=== PATIENT | female | born 1945 | race Caucasian/White ===

== ENCOUNTER 2016-10-11 10:03 | Emergency (ER) | payer MEDICARE ==
[~2016-10-11] VITALS: Ht 175.3 cm; Wt 90.9 kg
[~2016-10-11 10:03] MED LIST: ANTIVERT 25MG25 MG PO; ASPIRIN 81M81 MG/TA2 PO; B2-5050 MG PO; CELEXA 20MG20 MG/TAB PO; GLUCOPHAGE XR500 M1 PO; HCTZ 25MG25 MG PO; HYZAAR; HYZAAR 25 MG-101 TAB PO; LABETALOL100 MG PO; LIPITOR 40MG TA40 MG PO; METFORMIN ER500 MG PO; NORCO PO; NORMODYNE100 MG PO; PRAVACHOL10 MG PO
[2016-10-11 10:05] VITALS: TEMP 97.5
[2016-10-11 10:41] LABS: BASO # 0.1 (0.0-0.2); BASO % 1.9 % (0.0-2.0); EOS # 0.4 (0.0-0.7); GRAN # 3.4 (1.4-6.5); GRAN % 53.7 % (42.2-75.2); HEMATOCRIT 41.3 % (37.0-47.0); HEMOGLOBIN 13.9 g/dl (12.5-16.0); LYMPH # 1.9 (1.2-3.4); LYMPH % 29.4 % (20.0-51.0); MEAN CELL VOLUME 89 fl (80.0-100.0); MEAN CORPUSCULAR HEMOGLOBIN 30 pg (27.0-31.0); MEAN CORPUSCULAR HGB CONC 34 g/dl (33.0-37.0); MEAN PLATELET VOLUME 10.4 fl (7.4-10.4); MONO # 0.5 (0.1-0.6); MONO % 7.8 % (1.7-9.3); PLATELET COUNT 291 K/mm3 (130-400); RED BLOOD COUNT 4.66 M/mm3 (4.10-5.30); REDCELL DISTRIBUTION WIDTH-CV 12.7 % (11.5-14.5); WHITE BLOOD COUNT 6.3 K/mm3 (4.8-10.8)
[2016-10-11 10:59] LABS: ADJUSTED CALCIUM 9.7 mg/dL (8.4-10.2); ALANINE AMINOTRANSFERASE 33 U/L (9-52); ALBUMIN 4.3 gm/dL (3.5-5.0); ALKALINE PHOSPHATASE 78 U/L (50-136); ANION GAP 14 mmol/L (7-16); BILIRUBIN,TOTAL 1.3 mg/dL (0.0-1.0); BLOOD UREA NITROGEN 20 mg/dL (7-17); CALCIUM 9.9 mg/dL (8.4-10.2); CARBON DIOXIDE 22 mmol/L (22-30); CHLORIDE 103 mmol/L (98-107); GLUCOSE 108 mg/dL (74-106); POTASSIUM 3.7 mmol/L (3.4-5.0); SODIUM 139 mmol/L (137-145); TOTAL PROTEIN 8.1 gm/dL (6.4-8.2)
[2016-10-11 11:06] LABS: C-REACTIVE PROTEIN < 0.5 mg/dL (0.0-0.9)
[2016-10-11 11:16] LABS: ARTERIAL BLD GAS O2 SATURATION 98.2 % (92-100); ARTERIAL BLOOD GAS BASE EXCESS 0.1 (-2-2); ARTERIAL BLOOD GAS HCO3 18.4 meq/L (22-26); ARTERIAL BLOOD GAS PO2 108.8 mmHg (80-100); ARTERIAL BLOOD GAS PO2T 108.8 (80-100); OXYHEMOGLOBIN 97.2 %
[2016-10-11 11:17] LABS: ARTERIAL BLOOD GAS PHT 7.63 C (7.35-7.45); ARTERIAL BLOOD GAS pH 7.63 (7.35-7.45); ATS? YES
[2016-10-11 12:30] VITALS: BP 146/74; PULSE 70
== END 2016-10-11 12:34 | disposition home or self-care (01) ==
LOC: COL.ER 10:03
PROVIDERS: Family Medicine
DX: R06.4 Hyperventilation (principal); E11.9 Type 2 diabetes mellitus without complications; I10 Essential (primary) hypertension
CPT/HCPCS: J2270

== ENCOUNTER 2016-11-16 12:46 | Emergency (ER) | payer MEDICARE ==
[~2016-11-16] VITALS: Ht 175.3 cm; Wt 90.9 kg
[2016-11-16 12:48] VITALS: TEMP 97.8
[2016-11-16 14:17] LABS: BASO # 0.1 (0.0-0.2); EOS # 0.3 (0.0-0.7); EOS % 3.7 % (0-4.0); GRAN # 5.8 (1.4-6.5); GRAN % 65.4 % (42.2-75.2); HEMATOCRIT 39.3 % (37.0-47.0); HEMOGLOBIN 13.5 g/dl (12.5-16.0); LYMPH % 22.1 % (20.0-51.0); MEAN CELL VOLUME 88 fl (80.0-100.0); MEAN CORPUSCULAR HEMOGLOBIN 30 pg (27.0-31.0); MEAN CORPUSCULAR HGB CONC 34 g/dl (33.0-37.0); MEAN PLATELET VOLUME 10.3 fl (7.4-10.4); MONO # 0.7 (0.1-0.6); MONO % 7.6 % (1.7-9.3); PLATELET COUNT 270 K/mm3 (130-400); RED BLOOD COUNT 4.47 M/mm3 (4.10-5.30); WHITE BLOOD COUNT 8.9 K/mm3 (4.8-10.8)
[2016-11-16 14:29] LABS: ANION GAP 13 mmol/L (7-16); BLOOD UREA NITROGEN 22 mg/dL (7-17); CALCIUM 9.3 mg/dL (8.4-10.2); CARBON DIOXIDE 25 mmol/L (22-30); CHLORIDE 102 mmol/L (98-107); CREATININE, serum 0.83 mg/dL (0.52-1.25); GLUCOSE 94 mg/dL (74-106); POTASSIUM 3.7 mmol/L (3.4-5.0); SODIUM 140 mmol/L (137-145)
[2016-11-16 14:43] LABS: TROPONIN-I < 0.012 ng/mL (0.000-0.034)
[2016-11-16] MEDS ORDERED: ULTRAM 50MG TAB50 MG PO (15:51)
[2016-11-16] MEDS ORDERED: PERCOCET 325 MG1 TA2 PO (15:51)
[2016-11-16 16:28] VITALS: BP 111/61; PULSE 81
== END 2016-11-16 16:18 | disposition home or self-care, planned readmission (81) ==
LOC: COL.ER 12:46
PROVIDERS: Emergency Medicine
DX: R07.89 Other chest pain (principal); W01.198A Fall on same level from slipping, tripping and stumbling with subsequent striking against other object, initial encounter; Y92.002 Bathroom of unspecified non-institutional (private) residence as the place of occurrence of the external cause; Z91.81 History of falling; R42 Dizziness and giddiness; I10 Essential (primary) hypertension
CPT/HCPCS: J1170; J1885; J2405; J7030

== ENCOUNTER 2016-11-29 10:15 | Outpatient (RCR) | payer MEDICARE ==
[~2016-11-29 10:15] MED LIST changes: +PERCOCET 325 MG1 TA2 PO; +ULTRAM 50MG TAB50 MG PO
== END 2016-12-02 12:55 | disposition home or self-care (01) ==
LOC: WSPT 10:15
DX: G62.89 Other specified polyneuropathies (principal); R26.89 Other abnormalities of gait and mobility
CPT/HCPCS: G8978-GP; G8979-GP; G8980-GP

== ENCOUNTER 2018-08-02 11:15 | Emergency (ER) | payer MEDICARE ==
[~2018-08-02] VITALS: Ht 175.3 cm; Wt 90.9 kg
[2018-08-02 11:16] VITALS: BP 113/58; TEMP 97.9
[2018-08-02] MEDS ORDERED: TYLENOL 500MG500 MG PO (12:38)
[2018-08-02] MEDS ORDERED: PROAIR HFA0.09 MG/AC IH (12:39)
[2018-08-02] MEDS ORDERED: PRILOSEC 20MG20 MG PO (12:41)
[2018-08-02] MEDS ORDERED: CLARITIN 1010 MG/TAB PO (12:42)
[2018-08-02] MEDS ORDERED: VITAMIN B650 MG PO (12:43)
[2018-08-02] MEDS ORDERED: DOXYCYCLINE 10100 MG PO (14:14)
[2018-08-02 14:30] VITALS: PULSE 94
== END 2018-08-02 14:30 | disposition home or self-care (01) ==
LOC: COL.ER 11:15
DX: S40.011A Contusion of right shoulder, initial encounter (principal); S70.01XA Contusion of right hip, initial encounter; E11.621 Type 2 diabetes mellitus with foot ulcer; L97.529 Non-pressure chronic ulcer of other part of left foot with unspecified severity; L97.519 Non-pressure chronic ulcer of other part of right foot with unspecified severity; F41.0 Panic disorder [episodic paroxysmal anxiety]; R06.4 Hyperventilation; I10 Essential (primary) hypertension; J44.9 Chronic obstructive pulmonary disease, unspecified; F41.9 Anxiety disorder, unspecified; M54.9 Dorsalgia, unspecified; G89.29 Other chronic pain; Z79.84 Long term (current) use of oral hypoglycemic drugs; Z79.82 Long term (current) use of aspirin; Z79.891 Long term (current) use of opiate analgesic; Z86.73 Personal history of transient ischemic attack (TIA), and cerebral infarction without residual deficits; W18.30XA Fall on same level, unspecified, initial encounter; Y92.002 Bathroom of unspecified non-institutional (private) residence as the place of occurrence of the external cause
CPT/HCPCS: J1630

== ENCOUNTER 2019-08-09 11:17 | Inpatient (IN) | payer MEDICARE ==
[~2019-08-09] VITALS: Ht 172.7 cm; Wt 95.0 kg
[~2019-08-09 11:17] MED LIST changes: +CLARITIN 1010 MG/TAB PO; +DOXYCYCLINE 10100 MG PO; +PRILOSEC 20MG20 MG PO; +PROAIR HFA0.09 MG/AC IH; +TYLENOL 500MG500 MG PO; +VITAMIN B650 MG PO
[2019-08-09 11:53] LABS: MEAN CELL VOLUME 94 fl (80.0-100.0); MEAN CORPUSCULAR HGB CONC 34 g/dl (33.0-37.0); MEAN PLATELET VOLUME 10.5 fl (7.4-10.4); PLATELET COUNT 266 K/mm3 (130-400); RED BLOOD COUNT 2.81 M/mm3 (4.10-5.30); REDCELL DISTRIBUTION WIDTH-CV 13.4 % (11.5-14.5)
[2019-08-09 11:57] LABS: HEMATOCRIT 26.3 % (37.0-47.0); HEMOGLOBIN 8.8 g/dl (12.5-16.0); MEAN CORPUSCULAR HEMOGLOBIN 31 pg (27.0-31.0)
[2019-08-09 12:03] LABS: PROTHROMBIN TIME 11.5 SECONDS (9.7-12.8)
[2019-08-09 12:11] LABS: ALBUMIN 4.2 gm/dL (3.5-5.0); BILIRUBIN,TOTAL 0.9 mg/dL (0.0-1.0); CALCIUM 9.1 mg/dL (8.4-10.2); CREATININE, serum 2.63 (0.52-1.25); POTASSIUM 4.7 mmol/L (3.4-5.0); TOTAL PROTEIN 7.3 gm/dL (6.4-8.2)
[2019-08-09 12:18] LABS: BAND 5 % (0-10); LYMPHOCYTE 5 % (20.0-51.0); NEUTROPHILS 88 % (42.0-75.2); PLATELET ESTIMATE NORMAL (NORMAL)
[2019-08-09 12:27] LABS: TROPONIN-I 0.093 ng/mL (0.000-0.035)
[2019-08-09 12:52] LABS: COLLECTION METHOD CATHETER
[2019-08-09 13:10] LABS: MUCOUS Present /lpf; PH 5 (5-8); SQUAMOUS EPITHELIAL 0-2 /hpf; URINE APPEARANCE Cloudy; URINE BACTERIA None Seen /hpf; URINE BILIRUBIN Negative (NEGATIVE); URINE BLOOD 3+ (NEGATIVE); URINE COLOR Amber; URINE GLUCOSE Negative (NEGATIVE); URINE KETONE Trace (NEGATIVE); URINE LEUKOCYTE ESTERASE Negative (NEGATIVE); URINE NITRATE Negative (NEGATIVE); URINE PROTEIN(semi-quant) 1+ (NEGATIVE); URINE RBC 0-2 /hpf; URINE UROBILINOGEN Negative (NEGATIVE)
[2019-08-09] MEDS ORDERED: BUSPAR5 MG PO (13:11)
[2019-08-09 14:20] VITALS: BP 115/56; PULSE 104; TEMP 98.2
[2019-08-09 16:00] VITALS: BP 132/50; PULSE 105; TEMP 98.4
[2019-08-09] MEDS ORDERED: XANAX 0.5MG0.5 MG PO (16:34)
[2019-08-09] MEDS ORDERED: ATIVAN 1MG T1 MG/TAB PO (16:35)
[2019-08-09] MEDS ORDERED: ULTRAM 50MG TAB50 MG PO (16:36)
--- NOTE | 2019-08-09 19:31 | NUR ---
Patient resting in bed. Daughter was at bedside earlier today. Inital, med rec & 5 page completed. Spoke to Dr. Bautista office for up to date files. Patient has spent most of the day sleeping. Milner to DD with minimal urine output. Urine sediment present. Npo at this time, difficulty swallowing noted. Scds ble. Ivf per orders.
[2019-08-09 19:46] VITALS: BP 112/91; PULSE 111; TEMP 97.9
[2019-08-10] VITALS (15 sets, daily range): BP systolic 92–132; BP diastolic 44–78; PULSE 88–105; TEMP 97.2–98.7
--- NOTE | 2019-08-10 04:54 | NUR ---
Patient has rested well throughout the night. Noted to start moaning and whimpering in pain about 0200. Patient appears more alert than when this nurse came on shift and PRN Morphine was administered at 0230 and 0430. Patient appears to rest more comfortably after administration, but does continue to moan. Ice to left hip. Dr. Hall was called at beginning of shift for IV pain medications, because this nurse attempted to give patient a sip of water and she ended up coughing with it. Milner catheter continues to be in place and drains clear, yellow urine. Will continue to monitor patient.
[2019-08-10 07:11] LABS: BASO % 0.2 % (0.0-2.0); EOS % 0.3 % (0-4.0); GRAN # 10.7 (1.4-6.5); GRAN % 80.9 % (42.2-75.2); LYMPH # 1.4 (1.2-3.4); LYMPH % 10.3 % (20.0-51.0); MEAN CELL VOLUME 97 fl (80.0-100.0); MEAN CORPUSCULAR HGB CONC 32 g/dl (33.0-37.0); MEAN PLATELET VOLUME 10.3 fl (7.4-10.4); MONO % 7.5 % (1.7-9.3); PLATELET COUNT 210 K/mm3 (130-400); RED BLOOD COUNT 2.17 M/mm3 (4.10-5.30); REDCELL DISTRIBUTION WIDTH-CV 13.8 % (11.5-14.5)
[2019-08-10 07:23] LABS: ALBUMIN 3.1 gm/dL (3.5-5.0); BILIRUBIN,TOTAL 0.6 mg/dL (0.0-1.0); CALCIUM 7.8 mg/dL (8.4-10.2); CREATININE, serum 2.31 (0.52-1.25); MAGNESIUM 1.9 mg/dL (1.6-2.3); PHOSPHOROUS 4.9 mg/dL (2.5-4.5); POTASSIUM 4.5 mmol/L (3.4-5.0); TOTAL PROTEIN 5.9 gm/dL (6.4-8.2)
[2019-08-10 07:28] LABS: HEMATOCRIT 21.1 % (37.0-47.0); HEMOGLOBIN 6.7 g/dl (12.5-16.0); MEAN CORPUSCULAR HEMOGLOBIN 31 pg (27.0-31.0)
--- NOTE | 2019-08-10 07:41 | NUR ---
Critical H&H called to , all labs reviewed. Updated ortho with labs & informed them she is not yet cleared for the Or. Consult to called & he was updated with labs.
--- NOTE | 2019-08-10 12:34 | NUR ---
rounded. Orders obtained. He called & informed him patient is cleared for surgery. called & made aware of plan of care. Patient daughter Erma has been at bedside & aware of plan. First unit of blood started per orders. blood protocol followed & verified with Julita Jacobo. Blood infusing to L.hand 20G IV @ 60ML./hr, primary nurse at bedside. Signs & symtoms of trandfusion reaction reviewed. Vss on 1 L. Patient has been having complaints of pain, she has been loudly maoning & groaning & grimicing. -Doctors aware, concerns for sedation, so pain medication orders the same, they are not willing to increase. Ice pack to hip. Have tried multiple times to reposition. Unable to get patient comfortable.
--- NOTE | 2019-08-10 16:09 | NUR ---
Patient resting in bed. Second tab of roxicodone seems to have relieved pain some. She is not moaning out in pain as frequently. First unit of blood transfused with no signs or symptoms of reaction. Second unit of blood started per protocol. Verfied with Alice Jacobo. This nurse remains at bedside.
--- NOTE | 2019-08-10 18:52 | NUR ---
Second unit of blood has finished. Patient tolerated without signs or symptoms of infusion. Patient continues to moan & groan & constantly ask for water, sips of water provided for comfort. She has had no interest in food. Third tab of roxicodone provided with tylenol-it seems to be working slightly better than the IV morphine. She has rested at times. Urine output adequate. Ivf per orders. Felipa to Rle, Scds ble. Edema reamins to LLe. She has refused repositioning today.
[2019-08-11] VITALS (14 sets, daily range): BP systolic 108–154; BP diastolic 55–85; PULSE 82–100; TEMP 97.6–98.9
--- NOTE | 2019-08-11 01:41 | NUR ---
PATIENT DOING WELL TONIGHT. WAS HAVING PAIN AT BEGINNING OF SHIFT AND CONTINUE TO MOAN AND GROAN. PRN MORPHINE WAS GIVEN AND PATIENT HAS BEEN RESTING COMFORTABLY SINCE THEN. ABRASIONS NOTED TO BLE. TOOK A FEW SIPS OF WATER EARLIER AND NOTED TROUBLE SWALLOWING/ASPIRATION, HOB ELEVATED. NPO SINCE MIDNIGHT. NO FURTHER NEEDS AT THIS TIME. WILL CONTINUE TO MONITOR.
[2019-08-11 03:36] LABS: HEMATOCRIT 27.2 % (37.0-47.0)
[2019-08-11 03:38] LABS: HEMOGLOBIN 8.9 g/dl (12.5-16.0)
[2019-08-11 06:58] LABS: BASO # 0.1 (0.0-0.2); BASO % 0.5 % (0.0-2.0); EOS # 0.2 (0.0-0.7); EOS % 1.7 % (0-4.0); GRAN % 75.1 % (42.2-75.2); LYMPH # 1.4 (1.2-3.4); LYMPH % 13.3 % (20.0-51.0); MEAN CELL VOLUME 96 fl (80.0-100.0); MEAN CORPUSCULAR HGB CONC 32 g/dl (33.0-37.0); MEAN PLATELET VOLUME 10.7 fl (7.4-10.4); MONO % 8.9 % (1.7-9.3); PLATELET COUNT 210 K/mm3 (130-400); RED BLOOD COUNT 2.96 M/mm3 (4.10-5.30); REDCELL DISTRIBUTION WIDTH-CV 14.8 % (11.5-14.5)
[2019-08-11 07:13] LABS: ALBUMIN 3.1 gm/dL (3.5-5.0); BILIRUBIN,TOTAL 0.9 mg/dL (0.0-1.0); CALCIUM 8.1 mg/dL (8.4-10.2); CREATININE, serum 1.65 (0.52-1.25); POTASSIUM 4.5 mmol/L (3.4-5.0)
[2019-08-11 07:15] LABS: HEMATOCRIT 28.5 % (37.0-47.0); HEMOGLOBIN 9.2 g/dl (12.5-16.0); MEAN CORPUSCULAR HEMOGLOBIN 31 pg (27.0-31.0)
--- NOTE | 2019-08-11 07:15 | NUR ---
To surgery per bed with OR staff. Family here.
--- NOTE | 2019-08-11 09:55 | NUR ---
Returned to room from PACU. Very drowsy. No signs of pain. O2 on. Gauze dressings x 2 CDI to left hip. VSS. Family at bedside.
--- NOTE | 2019-08-11 10:27 | NUR ---
Patient lives at home alone in [place], [place] and plans to return home upon discharge. Patient is mostly independent with daily living activities and receives support or assistance as needed from family members including her daughters (Erma Floyd phone: [phone] and Tasneem Welsh [place] phone: [phone]). Patient's primary care physician is John Farah, her pharmacy is [facility], and she does have advance directives for healthcare completed. No further needs at this time and 7th grade social studies teacher will follow as needed.
--- NOTE | 2019-08-11 18:00 | NUR ---
Slept for several hours. VSS. Medicated for left hip pain with prn Morphine and [place] with pain relief. Repositioned with head of bed up. Took pudding and nutrition drink.
--- NOTE | 2019-08-12 00:18 | NUR ---
PATIENT DOING WELL TONIGHT. IS NO LONGER GROANING IN PAIN. STATES PAIN IS INCREASING, PRN NORCO GIVEN. X2 DRESSINGS TO L HIP WITH GUAZE AND TEGADERM CDI. IVF INFUSING. WALTERS DRAINING CLEAR YELLOW URINE. ABRASIONS NOTED THROUGHOUT LOWER EXTREMITIES. TOOK MEDICATIONS WITH SIPS OF WATER, NOTED TO COUGH AFTERWARDS. HAS BEEN DRINKING LOTS OF WATER TONIGHT. PATIENTS HAIR BRUSHED OUT BY VICE INVESTIGATOR. NO FURTHER NEEDS AT THIS TIME. WILL CONTINUE TO MONITOR.
[2019-08-12 04:00] VITALS: BP 133/72; PULSE 85; TEMP 97.8
--- NOTE | 2019-08-12 07:15 | NUR ---
Report from Riana LOO.
[2019-08-12 07:23] VITALS: BP 124/68; PULSE 84; TEMP 98.4
[2019-08-12 07:48] LABS: BASO % 0.1 % (0.0-2.0); GRAN # 9.2 (1.4-6.5); GRAN % 87.9 % (42.2-75.2); LYMPH # 0.6 (1.2-3.4); LYMPH % 6.1 % (20.0-51.0); MEAN CELL VOLUME 96 fl (80.0-100.0); MEAN CORPUSCULAR HGB CONC 33 g/dl (33.0-37.0); MEAN PLATELET VOLUME 10.6 fl (7.4-10.4); MONO # 0.6 (0.1-0.6); MONO % 5.6 % (1.7-9.3); PLATELET COUNT 216 K/mm3 (130-400); RED BLOOD COUNT 2.46 M/mm3 (4.10-5.30); REDCELL DISTRIBUTION WIDTH-CV 13.9 % (11.5-14.5)
[2019-08-12 07:50] LABS: HEMATOCRIT 23.6 % (37.0-47.0); HEMOGLOBIN 7.7 g/dl (12.5-16.0); MEAN CORPUSCULAR HEMOGLOBIN 31 pg (27.0-31.0)
[2019-08-12 07:55] LABS: BILIRUBIN,TOTAL 0.9 mg/dL (0.0-1.0); CALCIUM 8.1 mg/dL (8.4-10.2); CREATININE, serum 1.37 (0.52-1.25); PHOSPHOROUS 3.2 mg/dL (2.5-4.5); POTASSIUM 4.8 mmol/L (3.4-5.0); TOTAL PROTEIN 5.8 gm/dL (6.4-8.2)
--- NOTE | 2019-08-12 10:36 | NUR ---
PT UP TO RECLINER WITH THERAPY. PLAN ON TRANSFER TO SNF AT A LATER TIME. DRESSINGS TO LEFT HIP CDI.
--- NOTE | 2019-08-12 10:42 | NUR ---
ARRON met with the patient and her daughter, Erma, to review discharge plan and to discuss PT's recommendation of post-acute rehab. The patient and her daughter were in agreeance to this. ARRON presented and explained the Patient Choice Form and provided her with Medicare.[facility] list of nursing homes in the [facility]. The patient and her daughter chose 1) [facility] 2) [facility]. Patient Choice Form signed by the patient's daughter and she was provided a copy. ARRON contacted and faxed a referral to Dana at [facility]. ARRON consulted IPR Director, Nargis. SW awaiting their screens.
[2019-08-12 11:14] VITALS: BP 129/54; PULSE 93; TEMP 98.3
--- NOTE | 2019-08-12 13:18 | NUR ---
Dana, at [facility], reports that they should be good to accept the patient for a skilled stay. SW to inform the patient and her daughters and will continue to follow.
--- NOTE | 2019-08-12 14:06 | NUR ---
PT RETURNED TO BED WITH SIT TO STAND LIFT AND ASSIST X2. PT SCREAMING THE ENTIRE TIME DURING TRANSFER. AFTER RETURNED TO BED PT STOPPED. PT VERBALIZED COMFORT.
[2019-08-12 16:11] VITALS: BP 90/64; PULSE 89; TEMP 98.1
--- NOTE | 2019-08-12 18:55 | NUR ---
REPORT TO ELENA LOO.
[2019-08-12 19:59] VITALS: BP 127/59; PULSE 87; TEMP 97.9
--- NOTE | 2019-08-12 20:30 | NUR ---
Lying in bed with eyes open. Explains that she is having nerve pain in left leg. Dressing to left hip CDI. Scrapes noted to nose, bilat knees, and bilat feet. Patient alert at times and then confused at other times. Concerned about how long she will be able to stay in the hospital. Explained that we have a social secretary who will work with her and her family on getting that figured out and they should come in the morning to see her. Patient denies further needs at this time.
--- NOTE | 2019-08-12 20:40 | NUR ---
Per the patient her pain is intermittently increasing in left lower leg and lower back. Administer [place] as prescribed. Patient denies further needs.
--- NOTE | 2019-08-12 21:30 | NUR ---
Patient rates pain in left leg and lower back 8/10, describes as a burning nerve pain. Administer Morphine as prescribed. Patient repositioned in bed. Ice pack applied to left hip. Patient tearful and says that she shouldn't be in pain like this and says that she feels like a baby. Reassurance provided to the patient. Encouraged patient to try to relax. Patient denies further needs at this time.
--- NOTE | 2019-08-12 22:15 | NUR ---
Lying in bed with eyes closed. Respirations even and unlabored. No signs or symptoms of discomfort noted at this time.
[2019-08-12 23:44] VITALS: BP 131/55; PULSE 90; TEMP 98
--- NOTE | 2019-08-13 00:08 | NUR ---
Lying in bed with eyes closed. Opens eyes when name called out. Does not want to reposition at this time. Voices no further needs or concerns.
[2019-08-13 03:14] VITALS: BP 149/58; PULSE 91; TEMP 97.9
--- NOTE | 2019-08-13 03:18 | NUR ---
Rates pain 7-8/10 in pelvis area and describes the pain as fire. Administered [place] as prescribed. Patient declines further needs at this time. Patient refuses being repositioned in the bed. Ice is still applied to left hip. Dressing to left hip with small amount of serosanguinous drainage.
--- NOTE | 2019-08-13 04:24 | NUR ---
Lying in bed with eyes closed. Respirations even and unlabored. Occassionally will moan out then go back to sleep. No signs or symptoms of discomfort noted at this time.
[2019-08-13 06:07] LABS: BASO % 0.1 % (0.0-2.0); EOS # 0.2 (0.0-0.7); EOS % 1.4 % (0-4.0); GRAN # 6.7 (1.4-6.5); GRAN % 64.3 % (42.2-75.2); LYMPH # 2.2 (1.2-3.4); LYMPH % 21.2 % (20.0-51.0); MEAN CELL VOLUME 95 fl (80.0-100.0); MEAN CORPUSCULAR HGB CONC 32 g/dl (33.0-37.0); MEAN PLATELET VOLUME 10.1 fl (7.4-10.4); MONO # 1.3 (0.1-0.6); MONO % 12.3 % (1.7-9.3); PLATELET COUNT 247 K/mm3 (130-400); RED BLOOD COUNT 2.43 M/mm3 (4.10-5.30); REDCELL DISTRIBUTION WIDTH-CV 13.9 % (11.5-14.5)
[2019-08-13 06:08] LABS: HEMATOCRIT 23.1 % (37.0-47.0); HEMOGLOBIN 7.4 g/dl (12.5-16.0); MEAN CORPUSCULAR HEMOGLOBIN 30 pg (27.0-31.0)
--- NOTE | 2019-08-13 06:16 | NUR ---
Lying in bed with eyes closed. Eyes open when name called out. Denies pain at this time. Offered to reposition and the patient declines and says that she would like to go back to sleep until breakfast comes. Denies further needs.
[2019-08-13 06:21] LABS: CALCIUM 7.9 mg/dL (8.4-10.2); CREATININE, serum 1.27 (0.52-1.25); POTASSIUM 4.5 mmol/L (3.4-5.0)
[2019-08-13 07:19] VITALS: BP 139/59; PULSE 84; TEMP 97.5
[2019-08-13] MEDS ORDERED: ASPI325T6 PO (08:12)
[2019-08-13] MEDS ORDERED: GOOD NEIGH1200 MG/15 PO (08:14)
[2019-08-13] MEDS ORDERED: COLACE 100100 MG/CAP PO (08:14)
[2019-08-13] MEDS ORDERED: TYLENOL 500MG500 MG PO (08:14)
[2019-08-13] MEDS ORDERED: DULCOLAX S10 MG/SUPP RC (08:14)
[2019-08-13] MEDS ORDERED: ULTRAM 50MG TAB50 MG PO (08:15)
[2019-08-13] MEDS ORDERED: NORCO 325 MG-7.1 TAB PO (08:15)
--- NOTE | 2019-08-13 09:35 | NUR ---
PT UP TO RECLINER WITH THERAPY. AM MEDS GIVEN WITH VANILLA PUDDING. PT SWALLOWED WITH NO ISSUES. WII REQUEST A SWALLOW STUDY WITH ALMA.
--- NOTE | 2019-08-13 10:11 | NUR ---
Nargis, IPR Director, reports that they are unable to accept the patient. SW to inform the patient and her daughters and will continue to follow.
--- NOTE | 2019-08-13 11:38 | NUR ---
First visit from the public relations manager. No needs right now.
[2019-08-13 12:04] VITALS: BP 124/92; PULSE 75; TEMP 98.2
[2019-08-13 15:53] VITALS: BP 134/49; PULSE 81; TEMP 98.5
--- NOTE | 2019-08-13 16:55 | NUR ---
The patient is to tentatively discharge today, 08/13. ARRON contacted and faxed updates to Dana at [facility]. Dana reports that they are awaiting prior-auth from the patient's insurance. ARRON updated the patient, patient's daughter (Erma), and clinical team. ARRON also explained the IM form to the patient's daughter, Erma. Erma gave ARRON her verbal consent. Dana, at [facility], then contacted back ARRON to inform that they have received prior-auth and that they would be able to accept the patient tomorrow, 08/14. ARRON updated the patient's daughter, Erma, and will update the clinical team and will continue to follow.
[2019-08-13 20:08] VITALS: BP 110/90; PULSE 86; TEMP 97.9
--- NOTE | 2019-08-13 21:10 | NUR ---
Sitting up in bed with eyes open. Milner to dependent drainage draining clear yellow urine. Explains that she is having pain everywhere. Dressing to left hip with serosanguinous drainage noted along with blistering. When repositioning patient she moans out and cries. Dressing change performed to left hip due to leaking fluid. Scrapes noted to patient nose, knees, and top of feet/toes. Patient denies needs at this time.
[2019-08-13 23:43] VITALS: BP 134/61; PULSE 89; TEMP 98.1
--- NOTE | 2019-08-13 23:44 | NUR ---
Lying in bed with eyes open. When patient asked if the pain medication helped alleviate her pain she says yes, unable to give numeric rating for the pain level. Patient declines being repositioned. Has ice pack to left hip. Dressing CDI. Patient denies further needs at this time.
--- NOTE | 2019-08-14 01:19 | NUR ---
Bed bath provided to the patient. Patient assisted in rolling in bed to change linens. Hair washed with shampoo cap. Oral care performed by the patient. Dressing to left hip CDI. Bruising noted to left thigh with some edema. Patient rating pain 7/10 in left leg and describes the pain as a shooting knife like sensation. Administered [place] as prescribed at this time. Ice pack reapplied to left hip. Patient denies further needs at this time.
--- NOTE | 2019-08-14 02:25 | NUR ---
Lying in bed with eyes closed. Respirations even and unlabored. No signs or symptoms of discomfort noted at this time.
[2019-08-14 05:04] VITALS: BP 117/52; PULSE 90; TEMP 97.9
--- NOTE | 2019-08-14 05:09 | NUR ---
Sitting up in bed with eyes open. No moaning or crying out at this time. Patient denies further needs at this time.
--- NOTE | 2019-08-14 06:56 | NUR ---
Report from Sandy LOO.
[2019-08-14 07:53] LABS: BASO % 0.2 % (0.0-2.0); EOS # 0.4 (0.0-0.7); EOS % 3.8 % (0-4.0); GRAN # 6.8 (1.4-6.5); GRAN % 64.9 % (42.2-75.2); LYMPH # 1.9 (1.2-3.4); LYMPH % 18.5 % (20.0-51.0); MEAN CELL VOLUME 97 fl (80.0-100.0); MEAN CORPUSCULAR HGB CONC 33 g/dl (33.0-37.0); MEAN PLATELET VOLUME 9.7 fl (7.4-10.4); MONO # 1.2 (0.1-0.6); MONO % 11.1 % (1.7-9.3); PLATELET COUNT 273 K/mm3 (130-400); RED BLOOD COUNT 2.61 M/mm3 (4.10-5.30); REDCELL DISTRIBUTION WIDTH-CV 14.3 % (11.5-14.5)
[2019-08-14 07:55] LABS: HEMATOCRIT 25.2 % (37.0-47.0); HEMOGLOBIN 8.2 g/dl (12.5-16.0); MEAN CORPUSCULAR HEMOGLOBIN 31 pg (27.0-31.0)
[2019-08-14 08:03] LABS: CALCIUM 8.2 mg/dL (8.4-10.2); CREATININE, serum 1.09 (0.52-1.25); POTASSIUM 4.9 mmol/L (3.4-5.0)
[2019-08-14 08:31] VITALS: BP 146/61; PULSE 91; TEMP 98
--- NOTE | 2019-08-14 09:14 | NUR ---
ARRON faxed updates to Dana at [facility].
--- NOTE | 2019-08-14 10:01 | NUR ---
PT UP TO DEVENDRA ANTOINE SIT TO STAND LIFY AND THERAPY THIS AM. DAUGHTER HERE. PLAN ON DISCHARGE TO [facility] LATER TODAY.
--- NOTE | 2019-08-14 11:57 | NUR ---
The patient is to discharge to today, 08/14 to [facility] for a residential stay. Dana reports she can transport the patient at 1400. The team, the patient, and the patient's daughter were in agreeance. SW faxed discharge orders. There are no additional needs at this time.
[2019-08-14 12:00] VITALS: BP 133/58; PULSE 77; TEMP 98
--- NOTE | 2019-08-14 14:26 | NUR ---
report to juan carlos Jacobo. pt left with transportation at this time.
== END 2019-08-14 14:27 | DRG 956 ==
LOC: COL.ER 11:17 → SURG 12:56
PROVIDERS: Nurse Practitioner; Nurse Practitioner Family; Orthopaedic Surgery; Physician Assistant; ADMIT Family Medicine
PROC: 0QS906Z Reposition Left Femoral Shaft with Intramedullary Internal Fixation Device, Open Approach (ICD-10-PCS; principal; 2019-08-11 10:00)
DX: S72.142A Displaced intertrochanteric fracture of left femur, initial encounter for closed fracture (principal); T79.6XXA Traumatic ischemia of muscle, initial encounter; G93.41 Metabolic encephalopathy; I21.4 Non-ST elevation (NSTEMI) myocardial infarction; N17.9 Acute kidney failure, unspecified; D62 Acute posthemorrhagic anemia; F41.9 Anxiety disorder, unspecified; E11.22 Type 2 diabetes mellitus with diabetic chronic kidney disease; N18.9 Chronic kidney disease, unspecified; I12.9 Hypertensive chronic kidney disease with stage 1 through stage 4 chronic kidney disease, or unspecified chronic kidney disease; E78.5 Hyperlipidemia, unspecified; D63.1 Anemia in chronic kidney disease; D72.829 Elevated white blood cell count, unspecified; E86.0 Dehydration; Z86.73 Personal history of transient ischemic attack (TIA), and cerebral infarction without residual deficits; Z90.49 Acquired absence of other specified parts of digestive tract; Z79.84 Long term (current) use of oral hypoglycemic drugs; Z79.82 Long term (current) use of aspirin; Z86.12 Personal history of poliomyelitis; Z88.0 Allergy status to penicillin; Z91.013 Allergy to seafood; Z88.1 Allergy status to other antibiotic agents
CPT/HCPCS: 99223-AI; 99232-AI; 99233-AI; 99239; A9284; C1713; C1769; J0690; J1170; J2250; J2270; J2405; J2704; J3010; J7030; J7120; P9016

== ENCOUNTER → 2019-09-19 | Outpatient (CLI) | payer MEDICARE ==
[~2019-09-19] MED LIST changes: +ASPI325T6 PO; +ATIVAN 1MG T1 MG/TAB PO; +BUSPAR5 MG PO; +COLACE 100100 MG/CAP PO; +DULCOLAX S10 MG/SUPP RC; +GOOD NEIGH1200 MG/15 PO; +NORCO 325 MG-7.1 TAB PO; +XANAX 0.5MG0.5 MG PO
== END ==
LOC: COL.RAD 11:42
DX: M25.552 Pain in left hip (principal); Z98.890 Other specified postprocedural states

== ENCOUNTER 2019-09-23 14:13 | Inpatient (IN) | payer MEDICARE ==
[~2019-09-23] VITALS: Ht 167.6 cm; Wt 104.5 kg
[2019-10-02] VITALS (10 sets, daily range): BP systolic 96–131; BP diastolic 62–89; PULSE 82–88; TEMP 97.5
[2019-10-02 10:58] LABS: HEMOGLOBIN 11.2 g/dl (12.5-16.0); MEAN CELL VOLUME 91 fl (80.0-100.0); MEAN CORPUSCULAR HEMOGLOBIN 30 pg (27.0-31.0); MEAN CORPUSCULAR HGB CONC 33 g/dl (33.0-37.0); MEAN PLATELET VOLUME 10.4 fl (7.4-10.4); PLATELET COUNT 377 K/mm3 (130-400); RED BLOOD COUNT 3.78 M/mm3 (4.10-5.30); REDCELL DISTRIBUTION WIDTH-CV 13.6 % (11.5-14.5)
[2019-10-02 10:59] LABS: HEMATOCRIT 34.3 % (37.0-47.0)
[2019-10-02 11:16] LABS: CALCIUM 9.9 mg/dL (8.4-10.2); CREATININE, serum 1.4 (0.52-1.25); POTASSIUM 4.2 mmol/L (3.4-5.0)
[2019-10-02] MEDS ORDERED: [UNRECOGNIZED DRUG - OTHER] TP (11:31)
[2019-10-02] MEDS ORDERED: TYLENOL SU650 MG/SUP RC (11:34)
[2019-10-02] MEDS ORDERED: ASPIRIN E.C. 8181 MG PO (11:37)
[2019-10-02] MEDS ORDERED: BUSPAR10 MG PO (11:38)
[2019-10-02] MEDS ORDERED: HYZAAR 25 MG-101 TAB PO (11:39)
[2019-10-02] MEDS ORDERED: IMODIUM 2MG CAPS2 MG PO (11:39)
[2019-10-02] MEDS ORDERED: IMDUR 30MG30 MG/TAB PO (11:40)
[2019-10-02] MEDS ORDERED: LIPITOR 40MG TA40 MG PO (11:41)
[2019-10-02] MEDS ORDERED: GLUCOPHAGE XR500 M1 PO (11:42)
[2019-10-02] MEDS ORDERED: MELATONIN5 M1 PO (11:42)
[2019-10-02] MEDS ORDERED: MIRALAX PA17 GM/Dose PO (11:44)
[2019-10-02] MEDS ORDERED: MYLANTA MAXIMU355 M1 PO (11:45)
[2019-10-02] MEDS ORDERED: NYSTATIN POWDER15 GM TOP (11:45)
[2019-10-02] MEDS ORDERED: PRILOSEC 20MG20 MG PO (11:46)
[2019-10-02] MEDS ORDERED: PERCOCET 325 MG1 TAB PO (11:46)
[2019-10-02] MEDS ORDERED: WELLBUTRIN SR150 M1 PO (11:48)
[2019-10-02] MEDS ORDERED: XANAX 0.5MG0.5 MG PO ×2 (11:49)
--- NOTE | 2019-10-02 17:04 | NUR ---
Clatifed with ortho & they are not wanting to consult [facility] at this time. [facility] clinic notifed & paperwork completed regaurding consult.
--- NOTE | 2019-10-02 19:33 | NUR ---
Received report from ODALIS Amaya. Pt arrived on the floor @1535. Had to obtain a manual blood pressure, this was due to the pt being very restless. Blood pressure manually was 110/78. Pt was responding to her name. Pt is tolerating well on room air. Pt lungs sounds were clear. Pt came back with two incisions one had a bulky dressing and the second one had a 2x2 and tegadrem dressing. Ice is currently applied to the incision. There is a doherty in place, this was placed in the facility that the pt came from, this was reported by Odalis Amaya. Urine is clear but has a foul odor. Pt did have on a pelon hose this was removed due to marking on upper thigh. Pt had ulcers on both heels the left heel had a dressing and the right is without dressing but they both look like stage 2 ulcers. Pt had bandages on her right toes, daughter stated that the pt had been receiving wound care. Left big toe has a scab along with 3 of her other toes on this foot. Pt did state the scabs were from previous fall. We applied heels protectors bilaterally. Pt has a SCD's on bilaterally. She has a 18G in her right wrist. Daughter is at bedside and call light is within reach
[2019-10-03] VITALS (7 sets, daily range): BP systolic 71–126; BP diastolic 36–97; PULSE 50–89; TEMP 97.5–98.7
--- NOTE | 2019-10-03 04:34 | NUR ---
Patient has slept well throughout the night. Noted to have some pain with repositioning. PRN [place] 7.5mg given at about 0400 for pain. Patient noted to be confused and stated she didn't remember having surgery yesterday. States, "I can get up and walk in a little bit." Education provided on her surgery. Bulky dressing to left hip CDI. Small gauze dressing to left knee CDI with tegaderm covering. Multiple wounds on bilateral toes and heels. Dressed per wound care. Bed alarms on and fall risk precautions in place. Heel protectors on and repositioning with 2 staff members provided. Cath care completed. Will continue to monitor.
--- NOTE | 2019-10-03 05:58 | NUR ---
Urine output noted to be low. IV fluids restarted and Brandan Pena ordered to run at 75ml/hr. Will continue to monitor patient's output.
--- NOTE | 2019-10-03 10:33 | NUR ---
Initial visit; Patient thanked Continuity Person for looking in on her and offering empathy and God's blessings.
--- NOTE | 2019-10-03 10:36 | NUR ---
Assessment completed, alert/disoriented and isisted we let her call her daughter this morning because she was very suspicous of where she was and who I was/ she did not beleive that she had a hip surgery done yesterdsay, vital signs stable, denies pain at rest/ pain incresed when PT and myself helped transfer her to the chair, I gave her a [place] tablet, she is now sitting in the chair, legs elevated/ ICE pack in place and chair alarm is set, incision site dressing changed to an Aquacell and it is C/D/I, distal pulses are palpable, patient has multiple sore/ulcers to her ankles/feet/toes, wound care following and doing dressing changes, heart RRR and lungs CTA/ no resp. difficulty ntoed, patient noted to have a neuromuscular disorder and has constant dyskinetic movements of face and upper extrmeties, she is unable to perform IS appropriately at this time, encouraging coughing/deep breathing exercises, morning medications given with applesauce,
--- NOTE | 2019-10-03 16:16 | NUR ---
Clinical Dental Technician met with patient and patient's sister Lisa (ph#[phone]) to discuss discharge planning. Patient has been at [facility] for skilled therapy and reports she has been in the [facility]. Patient sees Dr. Farah for primary care. Prior to SNF patient had canes and a four wheeled walker that she used at home. Patient states she plans to return to [facility] upon discharge. SW contacted patient's daughter, Natalie (ph#[phone]) who is in agreeance with discharge plan to [facility]. Patient explained Patient Choice form over the phone and Natalie provided verbal consent as signature. SW placed form in chart. SW contacted Dana at [facility] and faxed updates. SW to continue to follow.
[2019-10-03 17:39] LABS: HEMATOCRIT 23.8 % (37.0-47.0); HEMOGLOBIN 7.7 g/dl (12.5-16.0)
--- NOTE | 2019-10-03 19:30 | NUR ---
PATIENT RESTING IN BED DURING CHANGE OF SHIFT REPORT FROM DAY SHIFT NURSE, NO NEEDS OR COMPLAINTS REPORTED AT TIME OF REPORT.
--- NOTE | 2019-10-03 20:30 | NUR ---
WEAKNESS TO LLE D/T STATUS POST OP LEFT HIP SURGERY, DENIES NUMBNESS OR TINGLING TO EXTREMITIES.
[2019-10-04] VITALS (14 sets, daily range): BP systolic 94–123; BP diastolic 44–87; PULSE 72–85; TEMP 97–98.2
--- NOTE | 2019-10-04 01:30 | NUR ---
PATIENT RESTING WITH EYES CLOSED AND DOES NOT AWAKEN WHEN ROOM ENTERED, BREATHING NONLABORED AND EVEN.
[2019-10-04 06:53] LABS: HEMATOCRIT 23.2 % (37.0-47.0); HEMOGLOBIN 7.5 g/dl (12.5-16.0)
--- NOTE | 2019-10-04 06:59 | NUR ---
PATIENT RESTING IN BED DURING CHANGE OF SHIFT REPORT GIVEN TO DAY SHIFT NURSE. BED ALARM ON.
--- NOTE | 2019-10-04 10:04 | NUR ---
PT WAS AGITATED THIS AM. PRN ZANEX AND NORCO GIVEN ORDERED. PT SLEEPING NOW. PT PULLED INT OUT. ATTEMPTED TO PLACE [place] W[place]TER[place] BUT PT REFUSED AND AMMON STAFF ATTEMPTING TO PLACE CATHETER. IV SERVICES PLACED 20 GA TO RIGHT HAND.
--- NOTE | 2019-10-04 11:17 | NUR ---
Tool Dispatcher left message for Dana at [facility] and faxed updates. SW to continue to follow.
--- NOTE | 2019-10-04 14:58 | NUR ---
FIRST UNIT COMPLETE SECOND UNIT BEGAN, PT TOLERATING WELL. CHECKED 2ND UNIT WITH DAVID RN. FIRST UNIT CHECKED WITH SHAMIKA RN.
--- NOTE | 2019-10-04 15:02 | NUR ---
PURE WICK CATHETER INPLACE. PT VOIDING AFTER RECIEVING 10 MG LASIX BETWEEN UNITS.
--- NOTE | 2019-10-04 17:03 | NUR ---
BLOOD COMPLETE, PT TOLERATED WELL.
[2019-10-05 00:30] VITALS: BP 99/42; PULSE 74; TEMP 97.7
[2019-10-05 04:33] VITALS: BP 117/73; PULSE 68; TEMP 97.8
--- NOTE | 2019-10-05 05:31 | NUR ---
Patient has rested well throughout the night. Repositioned q2hr. Pericare completed. Purewick in place for urinary drainage. Urine yellow in color. Patient yells out in pain when repositioned even after pain medication. PRN pain medication given as needed. Patient stated anxiety at the beginning of the shift d/t not seeing her daughter lately. PRN anxiety medication administered. Will continue to monitor.
[2019-10-05 08:48] VITALS: BP 109/51; PULSE 79; TEMP 97.5
[2019-10-05 12:03] LABS: HEMATOCRIT 28.7 % (37.0-47.0); HEMOGLOBIN 9.7 g/dl (12.5-16.0)
[2019-10-05 12:43] VITALS: BP 102/57; PULSE 78; TEMP 97.8
--- NOTE | 2019-10-05 13:15 | NUR ---
Left hip pain improved with prn [place]. Xanax given for anxiety. Aquacell dressing intact to left hip. Talked to daughter per phone. Report given to nurse at [facility]. Dismissed to [facility] per w/c alice.
== END 2019-10-05 13:15 | DRG 909 ==
LOC: JCC 10-02 07:30 → SURG 10-02 07:30 → INPTSU 10-02 10:06 → SURG 10-02 10:06
PROVIDERS: Nurse Anesthetist, Certified Registered; Orthopaedic Surgery Sports Medicine; Physician Assistant; ADMIT Orthopaedic Surgery
PROC: 0QP704Z Removal of Internal Fixation Device from Left Upper Femur, Open Approach (ICD-10-PCS; 2019-10-02)
PROC: 0SRB029 Replacement of Left Hip Joint with Metal on Polyethylene Synthetic Substitute, Cemented, Open Approach (ICD-10-PCS; principal; 2019-10-02 12:00)
DX: T85.898A Other specified complication of other internal prosthetic devices, implants and grafts, initial encounter (principal); S72.142D Displaced intertrochanteric fracture of left femur, subsequent encounter for closed fracture with routine healing; F32.9 Major depressive disorder, single episode, unspecified; E11.9 Type 2 diabetes mellitus without complications; I10 Essential (primary) hypertension; K21.9 Gastro-esophageal reflux disease without esophagitis; F41.9 Anxiety disorder, unspecified; D64.9 Anemia, unspecified; J30.2 Other seasonal allergic rhinitis; G43.909 Migraine, unspecified, not intractable, without status migrainosus; W19.XXXD Unspecified fall, subsequent encounter; Z79.1 Long term (current) use of non-steroidal anti-inflammatories (NSAID); Z79.82 Long term (current) use of aspirin; Z86.73 Personal history of transient ischemic attack (TIA), and cerebral infarction without residual deficits; Z88.6 Allergy status to analgesic agent; Z88.0 Allergy status to penicillin
CPT/HCPCS: A9284; C1713; C1776; J1940; J2250; J2370; J2704; J2795; J3010; J7030; P9016

== ENCOUNTER → 2019-12-02 | Outpatient (CLI) | payer MEDICARE ==
[~2019-12-02] MED LIST changes: +ASPIRIN E.C. 8181 MG PO; +BUSPAR10 MG PO; +IMDUR 30MG30 MG/TAB PO; +IMODIUM 2MG CAPS2 MG PO; +MELATONIN5 M1 PO; +MIRALAX PA17 GM/Dose PO; +MYLANTA MAXIMU355 M1 PO; +NYSTATIN POWDER15 GM TOP; +PERCOCET 325 MG1 TAB PO; +TYLENOL SU650 MG/SUP RC; +WELLBUTRIN SR150 M1 PO; +[UNRECOGNIZED DRUG - OTHER] TP
== END ==
LOC: ZCOL.LAB 19:34
DX: N39.0 Urinary tract infection, site not specified (principal)

== ENCOUNTER → 2019-12-18 | Outpatient (CLI) | payer MEDICARE ==
[2019-12-18 15:17] LABS: COLLECTION METHOD CLEAN CATCH
[2019-12-18 15:32] LABS: PH 8 (5-8); URINE APPEARANCE Clear; URINE BACTERIA Rare /hpf; URINE BILIRUBIN Negative (NEGATIVE); URINE BLOOD Negative (NEGATIVE); URINE COLOR Yellow; URINE GLUCOSE Negative (NEGATIVE); URINE KETONE Negative (NEGATIVE); URINE LEUKOCYTE ESTERASE Negative (NEGATIVE); URINE NITRATE Negative (NEGATIVE); URINE PROTEIN(semi-quant) Negative (NEGATIVE); URINE RBC 0-2 /hpf; URINE UROBILINOGEN Negative (NEGATIVE); URINE WBC 0-2 /hpf
== END ==
LOC: ZCOL.LAB 14:04
PROVIDERS: Internal Medicine
DX: R39.15 Urgency of urination (principal); R82.90 Unspecified abnormal findings in urine

== ENCOUNTER → 2020-02-12 | Outpatient (CLI) | payer MEDICARE | LOC: BHSO 11:05 | DX: F31.81 Bipolar II disorder (principal) ==

== ENCOUNTER → 2020-03-10 | Outpatient (CLI) | payer MEDICARE | LOC: BHSO 11:59 | DX: F31.81 Bipolar II disorder (principal) ==

== ENCOUNTER → 2020-04-10 | Outpatient (CLI) | payer MEDICARE | LOC: BHSO 16:21 | DX: F31.81 Bipolar II disorder (principal) ==

== ENCOUNTER → 2021-01-25 | Outpatient (CLI) | payer MEDICARE | LOC: COL.RAD 09:01 | DX: R13.10 Dysphagia, unspecified (principal); Z98.890 Other specified postprocedural states ==